=== PATIENT | male | born 1985 | race Caucasian/White ===

== ENCOUNTER 2020-07-01 08:08 | Emergency (ER) | payer OTHER ==
[~2020-07-01] VITALS: Ht 182.9 cm; Wt 72.6 kg
[2020-07-01] MEDS ORDERED: INTESTINEX680 M2 PO (13:33)
[2020-07-01] MEDS ORDERED: PEPCID AC20 MG PO (13:33)
== END 2020-07-01 13:56 | disposition home or self-care (01) ==
LOC: ER 08:08
DX: A08.39 Other viral enteritis (principal); E86.0 Dehydration